=== PATIENT | male | born 1940 | race Caucasian/White ===

== ENCOUNTER → 2023-03-29 13:59 | Outpatient (REF) | payer OTHER, SELFPAY ==
[2023-03-29 14:34] LABS: % Basophils 0.6 % (0-2); % Eosinophils 3.9 % (0-6); % Immature Granulocytes 0.5 % (0-0.5); % Lymphocytes 22.2 % (20.5-51.1); % Monocytes 7.9 % (1.7-9.3); % Neutrophils 64.9 % (42.2-75.2); Absolute Eosinophils 0.3 10^3/uL (0-0.7); Absolute Lymphocytes 1.5 10^3/uL (1.2-3.4); Absolute Monocytes 0.5 10^3/uL (0.1-0.6); Absolute Neutrophils 4.3 10^3/uL (1.4-6.5); Hematocrit 39.4 % (39.0-52.0); Hemoglobin 13.6 g/dL (13.0-18.0); Mean Corp Hgb Conc. 34.5 g/dL (33.0-37.0); Mean Corpuscular Hgb 30.5 pg (27.0-31.0); Mean Corpuscular Volume 88.3 fL (80.0-94.0); Mean Platelet Volume 9.3 fL (7.4-10.4); Nucleated Red Blood Cells % 0 % (-); Platelet Count 236 10^3/uL (130-400); Red Blood Cell Count 4.46 10^6/uL (4.70-6.10); Red Cell Dist. Width 12.8 % (11.5-14.5); White Blood Cell Count 6.6 10^3/uL (4.8-10.8)
[2023-03-29 14:48] LABS: ALT (SGPT) 20 U/L (0-50); AST (SGOT) 21 U/L (17-59); Albumin 3.8 g/dl (3.5-5.0); Alkaline Phosphatase 92 U/L (38-126); Blood Urea Nitrogen 13 mg/dl (9-20); Calcium 9.7 mg/dl (8.4-10.2); Carbon Dioxide 27 mmol/L (22-30); Chloride 97 mmol/L (98-107); Glucose 103 mg/dl (70-99); HDL Cholesterol 61 mg/dl; LDL Cholesterol, Calculated 90 mg/dl; Potassium 4.5 mmol/L (3.5-5.1); Sodium 132 mmol/L (135-145); Total Bilirubin 0.7 mg/dl (0.2-1.3); Total Cholesterol 172 mg/dl (50-199); Total Protein 6.5 g/dl (6.3-8.2); Triglyceride 108 mg/dl (10-149); Very Low Density Lipoprotein 21 mg/dl (0-30); eGFR > 60.00
[2023-03-29 15:14] LABS: Urine Albumin Negative (Neg - Trace); Urine Bilirubin Negative (Negative); Urine Character Clear (Clear); Urine Color Yellow; Urine Glucose Negative (Negative); Urine Ketone Negative (Negative); Urine Leukocyte 1+ (Negative); Urine Nitrite Negative (Negative); Urine Occult Blood Negative (Negative); Urine Specific Gravity 1.015 (<1.030); Urine Urobilinogen Negative (Neg - 1+)
[2023-03-29 15:26] LABS: Urine Red Blood Cell 0-2 /HPF (0-2)
== END ==
LOC: RAD 13:59
PROVIDERS: ATTENDING PHYSICIAN Nurse Practitioner Family; FAMILY PHYSICIAN Family Medicine
DX: Z76.89 Persons encountering health services in other specified circumstances (principal); Z86.73 Personal history of transient ischemic attack (TIA), and cerebral infarction without residual deficits; K21.9 Gastro-esophageal reflux disease without esophagitis; Z01.89 Encounter for other specified special examinations; R05.3 Chronic cough; R09.89 Other specified symptoms and signs involving the circulatory and respiratory systems
CPT/HCPCS: 36415; 71046; 80053; 80061; 81003; 81015; 84443; 85025; 87086

== ENCOUNTER → 2023-05-15 14:19 | Outpatient (REF) | payer OTHER, SELFPAY | LOC: RAD 14:19 | PROVIDERS: ATTENDING PHYSICIAN Nurse Practitioner Family | DX: R05.3 Chronic cough (principal) | CPT/HCPCS: 71260; Q9967 ==

== ENCOUNTER → 2023-05-17 12:38 | Outpatient (REF) | payer OTHER, SELFPAY | LOC: HWRCS 12:38 | PROVIDERS: ATTENDING PHYSICIAN Internal Medicine Cardiovascular Disease; FAMILY PHYSICIAN Nurse Practitioner Family | DX: R05.3 Chronic cough (principal); I10 Essential (primary) hypertension; R06.02 Shortness of breath | CPT/HCPCS: 93306 ==

== ENCOUNTER 2023-05-29 19:00 | Inpatient (IN) | payer OTHER, SELFPAY ==
[2023-05-29] VITALS (7 sets, daily range): BP systolic 101–145; BP diastolic 57–75; BMI 26.4; BMI 25.9
[2023-05-29 15:44] LABS: % Basophils 0.5 % (0-2); % Eosinophils 1.1 % (0-6); % Immature Granulocytes 0.5 % (0-0.5); % Lymphocytes 8.7 % (20.5-51.1); % Monocytes 10.7 % (1.7-9.3); % Neutrophils 78.5 % (42.2-75.2); Absolute Basophils 0.1 10^3/uL (0-0.2); Absolute Eosinophils 0.1 10^3/uL (0-0.7); Absolute Immature Granulocytes 0.1 10^3/uL (0-0.05); Absolute Lymphocytes 0.8 10^3/uL (1.2-3.4); Absolute Neutrophils 7.4 10^3/uL (1.4-6.5); Hematocrit 33.4 % (39.0-52.0); Hemoglobin 11.9 g/dL (13.0-18.0); Mean Corp Hgb Conc. 35.6 g/dL (33.0-37.0); Mean Corpuscular Volume 84.1 fL (80.0-94.0); Mean Platelet Volume 8.5 fL (7.4-10.4); Nucleated Red Blood Cells % 0 % (-); Platelet Count 292 10^3/uL (130-400); Red Blood Cell Count 3.97 10^6/uL (4.70-6.10); Red Cell Dist. Width 12.4 % (11.5-14.5); White Blood Cell Count 9.4 10^3/uL (4.8-10.8)
[2023-05-29 15:52] LABS: INR 1.11; PT 14.3 Sec (11.4-14.6)
[2023-05-29 15:54] LABS: ALT (SGPT) 30 U/L (0-50); AST (SGOT) 32 U/L (17-59); Albumin 3.8 g/dl (3.5-5.0); Alkaline Phosphatase 114 U/L (38-126); Blood Urea Nitrogen 9 mg/dl (9-20); Calcium 9.2 mg/dl (8.4-10.2); Carbon Dioxide 25 mmol/L (22-30); Chloride 90 mmol/L (98-107); Glucose 106 mg/dl (70-99); Potassium 4.4 mmol/L (3.5-5.1); Sodium 121 mmol/L (135-145); Total Bilirubin 0.6 mg/dl (0.2-1.3); Total Protein 6.6 g/dl (6.3-8.2); eGFR > 60.00
[2023-05-29 16:06] LABS: NT-proBNP 714 pg/ml; Troponin I 0.021 ng/ml
--- NOTE | 2023-05-29 17:14 | ED.GENMED ---
History of Present Illness
General
Chief Complaint: Breathing Problem
Source: patient and family
Time Seen by Provider: 05/29/23 16:08
Travel History
Have you had any contact with someone who has COVID-19?: No
Do you have any symptoms of coronavirus? Fever > 100 degrees, chills, cough, shortness of breath, sore throat, loss of taste or smell, muscle aches, or headache?: Yes
Symptoms:: sob
History of Present Illness
History of Present Illness:
83-year-old male presents emergency department after being referred here by his passenger service representative. He notes a persistent cough for at least the last 2 months, has had an extensive workup and evaluations with his primary and now pulmonary. He localizes
his cough to the throat and neck area and has an appointment to see ENT in July. Was seen by pulmonary today and thought to have asthmatic bronchitis as a cause of the symptoms. However while in the office he developed an episode of coughing after
the nebulizer treatment that he was given which concerned the passenger service representative and he was referred to the ER specifically for a neck CAT scan. That finding is noted here. However, patient also incidentally noted to be hyponatremic which is new.
Patient denies hyponatremia like symptoms at this time such as dizziness, fatigue, etc. He is not on diuretics or other medications known to precipitate hyponatremia.
Past History
Past History
ED Past Medical History: GERD and Other (Reflux, hypertension)
ED Past Surgical History: Cholecystectomy, Orthopedic and Other
Social History
Tobacco: Non-smoker
Alcohol: None
Drug: None
Personal:
Living: with family
Phy Exam
Physical Exam
Physical Exam:
GENERAL: Alert , in no apparent distress, slightly hard of hearing
EYE: pupils equal and reactive
NECK: Supple, no significant adenopathy.
ENT: o/p clr, mmm, voice clear, no drool
CARDIAC: Regular rate and rhythm .
LUNGS: Equal breath sounds bilaterally, no acute respiratory distress, no stridor, no drool, slight Rales noted at right base, no wheezing, no retractions
ABDOMEN: Soft, without focal tenderness, no r/g, no cvat
NEUROLOGICAL: Alert and oriented, no focal neuro deficits
SKIN: Warm and dry, skin intact.
MUSCULOSKELETAL: No edema, well perfused.
PSYCH: Normal and appropriate interaction.
Scores
Heart Failure Risk
Heart Failure Risk Score: Not Applicable
Course
Orders/Labs/Results
Orders:
Orders
05/29/23 Dinner
Regular
At Your Request: Limited Participation
Fluid Restriction: 1200 mL/day (40 oz)
05/29/23 15:19
EKG [Electrocardiogram (*1)] Urgent
Reason for Study: Shortness of Breath
CT Neck W/o Iv Contrast Urgent
Comment:
Reason For Exam: persistent SOB
EKG- Treatment ONCE
CR Chest - 2 Views Urgent
Comment:
Reason For Exam: SOB
05/29/23 15:33
Complete Blood Count/With Diff Urgent
Comprehensive Metabolic Panel Urgent
NT-proBNP Urgent
Prothrombin Time Urgent
Troponin I Urgent
05/29/23 18:00
3% Sodium Chloride 250 ml [Sodium Chloride 3%] 250 ml IV ONCE
05/29/23 18:10
Admit/Transfer Patient As Directed
Co-Sign Provider:
Level of Care: Inpatient admission
Assign to:: Telemetry
Physician / Group: Kim Lake
Diagnosis: Hyponatremia
Reason for Telemetry: Chest Pain syndromes
Date to Stop Telemetry: 05/31/23
Time to Stop Telemetry: 11:00
Reason for Hospitalization: Hyponatremia
Expected length of stay greater than two midnights?: Yes
ELOS- Estimated Length of Stay in days: 3
I certify the patient meets the requirements for IP care: Yes
05/29/23 18:11
Code Status As Directed
Resuscitation Status: Full Code
05/29/23 18:28
Osmolality, Random Urine Urgent
Date Specimen was Collected: 05/29/23
Time Specimen was Collected: 18:16
Urine Sodium Stat
Date Specimen was Collected: 05/29/23
Time Specimen was Collected: 18:16
05/29/23 18:34
Albuterol [ProAIR HFA INHALER] 2 puff INH R Q6 PRN
Benzonatate [Tessalon Perles] 100 mg PO TIDPRN PRN
Budesonide/Formoterol 160/4.5 [Symbicort 160/4.5 Mcg Inhaler] 2 puff INH R BID
05/29/23 20:21
Acetaminophen [Tylenol] 650 mg PO Q4HPRN PRN
Bisacodyl [Dulcolax] 10 mg RECTAL [id number] PRN
Docusate W/Senna [Senokot-S] 1 tablet PO BIDPRN PRN
Enoxaparin Sodium [Lovenox] 40 mg SC QPM
Polyethylene Glycol Powder [Miralax] 17 grams PO DAILYPRN PRN
fluticasone propionate 1 spray NASAL BID
05/29/23 20:21
NEPHROLOGY CONSULT Routine
Consulting Provider: Alie Dubois
Was physician already notified: Yes
Sputum Culture [Respiratory Culture/Gram Stain] Routine
[place] Source: Sputum
Specimen Description:
Date Specimen was Collected: 05/30/23
Time Specimen was Collected: 09:09
Activity As Directed
Activity Level: Beach Chair
Nursing to Place Non Medication Order As Directed
Physician Order: please update overnight BRAND ENGINEER with 10PM Na results for further guidance on 3%. Goal Na tomorrow
AM is 124-125
Above order entered?: Yes
Vital Signs As Directed
Frequency: Per unit guidelines
Acapella [Rx Pep / Acapela] [RESP] Routine
DX Deep Vein Thrombosis Video Routine
05/29/23 21:41
BMP [Basic Metabolic Panel] Q4H
05/30/23 06:44
BMP [Basic Metabolic Panel] Q4H
Complete Blood Count/With Diff IN AM
TSH IN AM
05/30/23 08:00
Cetirizine HCl [Zyrtec] 10 mg PO DAILY
Guaifenesin [Mucinex] 600 mg PO DAILY
Pantoprazole [Protonix] 40 mg PO DAILY
Tamsulosin [Flomax] 0.4 mg PO DAILY
05/30/23 09:46
BMP [Basic Metabolic Panel] Q4H
05/30/23 13:44
BMP [Basic Metabolic Panel] Q4H
05/30/23 18:08
BMP [Basic Metabolic Panel] Q4H
05/30/23 21:33
BMP [Basic Metabolic Panel] Q4H
05/31/23 11:00
DC Protocol for Telemetry ONCE
Abnormal Lab Results
05/29/23
15:33
RBC 3.97 L 10^6/uL
(4.70-6.10)
Hgb 11.9 L g/dL
(13.0-18.0)
Hct 33.4 L %
(39.0-52.0)
Abs Immat Gran (auto) 0.1 H 10^3/uL
(0-0.05)
Absolute Neuts (auto) 7.4 H 10^3/uL
(1.4-6.5)
Absolute Lymphs (auto) 0.8 L 10^3/uL
(1.2-3.4)
Absolute Monos (auto) 1.0 H 10^3/uL
(0.1-0.6)
Neutrophils % 78.5 H %
(42.2-75.2)
Lymphocytes % 8.7 L %
(20.5-51.1)
Monocytes % 10.7 H %
(1.7-9.3)
Sodium 121 L mmol/L
(135-145)
Chloride 90 L mmol/L
(98-107)
Creatinine 0.6 L mg/dL
(0.7-1.3)
Glucose 106 H mg/dl
(70-99)
05/29/23 15:33
05/29/23 15:33
Vital Signs
Initial and Last Documented VS:
Initial Vital Signs
Temp Pulse Resp BP Pulse Ox
97.9 F 80 17 119/60 98
05/29/23 15:21 05/29/23 15:21 05/29/23 15:21 05/29/23 15:21 05/29/23 15:21
Last Documented Vital Signs
Temp Pulse Resp BP Pulse Ox
97.9 F 66 16 131/71 96
06/01/23 08:00 06/01/23 11:33 06/01/23 11:33 06/01/23 08:00 06/01/23 08:00
*Critical Care Note
Total Time (30-74mins, 75-104mins- exclusive of procedures): Not Applicable
Update Note
Update Note:
Patient presents to the Emergency Department with ___shortness of breath and wheezing
Number and Complexity of Problems Addressed at the Encounter
� Chronic conditions affecting care:
� Acute Exacerbation and/or Progression of Chronic Illness:
� Differential Diagnosis includes: Cough variant asthma, bronchitis, pneumonia, etc.
Amount and/or Complexity of Data to be Reviewed and Analyzed
� I performed an independent evaluation of and my interpretation is:
EKG: Read by me, normal sinus rhythm, normal rate, no acute ischemia, right bundle branch block
CT: CT scan of neck shows right lingual tonsillar enlargement mild partially effacing the right vallecula, could be tonsillar hypertrophy versus squamous cell carcinoma, moderate mucosal thickening in maxillary sinus.
Xrays: Chest x-ray unremarkable
Laboratory Studies: Sodium 121 chloride 90 which is a new finding
Other:
� Review of other/old records reveals: Recent chest CT unremarkable, recent chest x-ray unremarkable. Office note from today reviewed by me, patient was advised to start doxycycline, continue Symbicort, nebulizer therapy,
continue Flonase, etc. Patient has ENT consultation recommended.
� Clinical information was obtained by an independent historian:
� Prescriptions/Medications Considered but not given:
� Further testing considered but not performed:
Risk of Complications and/or Morbidity or Mortality of Patient Management
� Social determinants of health affecting care:
� Discussion with other providers (PCP, Hospitalists, Consultants, etc):
� Escalation of care including admission/observation vs risk of discharge considered: Unclear if CT neck findings a specific cause for his shortness of breath/cough, will need an ENT evaluation. Patient is clinically stable
here. However, he is noted to have new onset and worrisome hyponatremia. Case discussed with nephrology, recommendations pasted here, case discussed with hospitalist for admission. Will start 3% at this time.
Okay start him at 30cc per hour. BMP q4-6 hours. Goal for 124-125 by tomorrow AM. Please get urine osm and urine sodium
ED Attending Note
-
Portions of this chart may have been created with voice recognition software.� Occasional wrong word or��sound alike� substitutions may have occurred due to the inherent limitations of voice recognition software.
Discharge Plan
Departure
Patient Disposition: Admit
Date of Disposition: 05/29/23
Time of Disposition: 17:29
Admit to: Telemetry
Presentation/result/management discussed w/ accepting MD/DO: Hospitalist
Condition: Fair
Discharge Problem:
Acute hyponatremia
Interventions
Interventions:
*General Assessment Last Done: 05/29/23 15:23
*Neglect/Abuse Screening Last Done: 05/29/23 16:13
ED- Fall Risk Assessment Last Done: 05/29/23 16:13
*Nursing Disposition Last Done: 05/29/23 21:15
ED- Cardiac Assessment Last Done: 05/29/23 16:13
ED- Pulmonary Assessment Last Done: 05/29/23 16:13
Discharge Date and Time
Discharge Date/Time: 05/29/23 21:16
--- NOTE | 2023-05-29 17:41 | HPS.HSE ---
Family Physician
-
Family Physician: Monet Hooker
Chief Complaint
-
sent from pulmonary clinic
History of Present Illness
Mr. Gerardo Carlos is a 83 yo man with hx GERD, HTN with on-going outpatient work-up of cough sent to the ER by Field Sales Engineer for neck CT given report of stridor. Patient was given nebulizers in clinic followed by excessive coughing attack.
Given this, Dr. Jordan sent patient to the ER for expedited work-up.
Patient had Covid several months ago and following has had persistent and progressive cough. He reports coughing up significant thin mucus stating if he takes Mucinex it keeps him up all night. No fevers/chills. No chest pain. He sometimes feels
he has mucus stuck in chest.
He reports decreased appetite given persistent cough. He has remained hydrated. No nausea/vomiting/diarrhea. He has had normal BM. No LE swelling. No shortness of breath aside from paroxysms of coughing.
Patient was prescribed inhalers at Dr. Jordan's office today and has not yet taken.
Medical History
Past Medical History
Past Medical History: Reports Other ( GERD, HTN)
Past Surgical History: Reports Cholecystectomy and Orthopedic
Social History
Tobacco: Non-smoker
Alcohol: None
Family History
Family History: Not pertinent
Allergies / Home Medications
Allergies reflects when Allergies were last updated in [employer].
Home Medications with original date entered in [employer]
Allergy/Medication List:
Allergies
Allergy/AdvReac Type Severity Reaction Status Date / Time
No Known Allergies Allergy Unverified 05/29/23 15:21
Home Medications
albuterol sulfate 90 mcg/actuation aerosol inhaler 2 puff inhalation Q6H PRN shortness of breath or wheezing #6.7 grams 02/08/23
*med rec not yet confirmed
Review of Systems
-
History Source: Patient
A 12 point ROS was completed and negative except as noted: Yes
Physical Exam
Vital Signs
Vital Signs
Temp Pulse Resp BP Pulse Ox
97.9 F 91 22 101/57 95
05/29/23 15:21 05/29/23 16:45 05/29/23 16:45 05/29/23 16:21 05/29/23 16:30
Physical Exam
General: No Apparent Distress
HEENT: PERRLA
Respiratory: Clear and Other (end expiratory low pitch stridor )
Cardiac: S1/S2 and Regular Rhythm
GI: Soft and Non Tender
Musculoskeletal: No Edema
Skin: Warm and Dry; No Rash
Neuro: AO x 3
Psych: Calm
Laboratory Results
-
05/29/23 15:33
05/29/23 15:33
Laboratory Results
PT 14.3 Sec (11.4-14.6) 05/29/23 15:33
INR 1.11 05/29/23 15:33
Total Bilirubin 0.6 mg/dl (0.2-1.3) 05/29/23 15:33
AST 32 U/L (17-59) 05/29/23 15:33
ALT 30 U/L (0-50) 05/29/23 15:33
Alkaline Phosphatase 114 U/L (38-126) 05/29/23 15:33
Troponin I 0.021 ng/ml 05/29/23 15:33
Data Reviewed
-
Diagnostic Radiology: Report Reviewed by me
Lab Data: Labs Reviewed by me
Impression/Plan
-
Mr. Gerardo Carlos is a 83 yo man with hx GERD, HTN with on-going outpatient work-up of cough sent to the ER by Field Sales Engineer for neck CT.
Triage VS: T 97.9, P 80, RR 17, BP 119/60, SpO2 98%
LABS: WBC 9.4, Hg 11.9, PLT 292, Na 121, K+ 4.4, BUN 9, Cr 0.6, liver enzymes WNL, Trop 0.021, BNP 714
CXR
IMPRESSION:
1. Mildly decreased bilateral lung volumes with mild subpleural scarring and subsegmental atelectasis in both lower lungs which appears unchanged.
2. Mild left to right mediastinal shift which appears unchanged.
NECK CT
IMPRESSION:
1. Mild enlargement of the right lingual tonsil partially effacing the right vallecula. Diagnostic possibilities are (1) tonsillar hypertrophy or (2) squamous cell carcinoma.
2. Moderate mucosal thickening in the maxillary sinuses and ethmoid air cells.
3. Severe multilevel discogenic degenerative disease in the cervical spine with multilevel disc-osteophyte complexes causing mild spinal cord compression, mild central canal stenosis, and severe neural foraminal narrowing.
Hyponatremia
-etiology of hyponatremia likely 'tea and toast' diet as patient has not been eating well 2/2 resp sx versus SIADH from lung pathology
-3% started in the ER. Case discussed with renal who recommends BMP q 4 hours and goal Na tomorrow AM is 124-125
-admit to tele
-F/U urine sodium and osmol
-fluid restriction 1200cc/day
-formal renal consult tomorrow
Chronic Cough
Asthmatic Bronchitis
post covid syndrome
-on-going since covid with progressive symptoms. He had a recent chest CT without acute disease of the chest
-Neck CT abnormal showing mild enlargement right lingual tonsil -patient has follow up scheduled with ENT
-will order inhalers ordered by Dr. Jordan at clinic today that patient has not yet taken
-continue albuterol PRN
-Mucinex daily (patient doesn't like taking at night), acapella
-Tessalon pearles PRN
-sputum culture
BPH
-EXPLOSION WELDER Flomax
DVT PPx lovenox subQ
FULL CODE
[2023-05-29] MEDS: SODIUM CHLORIDE 3% 250 IV (18:34)
[2023-05-29 19:07] LABS: Osmolality Urine 388 mOsm/kg (300-900)
[2023-05-29] MEDS: SYMBICORT 160/4.5 MCG INHALER 2 PUFF INH (19:20)
[2023-05-29 19:35] LABS: Urine Sodium 56 mmol/L (30-90)
[2023-05-29] MEDS: SYMBICORT 160/4.5 MCG INHALER INH (20:09)
[2023-05-29] MEDS: LOVENOX 40 MG SC (20:35)
--- NOTE | 2023-05-29 22:00 | PTCARENOTE ---
Pt arrived to the unit around 2200. Pt ambulated from the stretcher to the bed. VSS and patient denies any pain. Pt oriented to the room and call montejo within reach. Assisted patient with using room telephone to contact his . Patient provided
with food menu and following regular diet, per order.
[2023-05-29 22:16] LABS: Blood Urea Nitrogen 10 mg/dl (9-20); Carbon Dioxide 25 mmol/L (22-30); Chloride 91 mmol/L (98-107); Estimated Creatinine Clearance 93 ml/min; Glucose 100 mg/dl (70-99); Potassium 4.4 mmol/L (3.5-5.1); Sodium 120 mmol/L (135-145); eGFR > 60.00
[2023-05-30] MEDS: ProAIR HFA INHALER 2 PUFF INH (00:56)
[2023-05-30 03:25] VITALS: BP 140/71
[2023-05-30] MEDS: ROBITUSSIN DM 5 ML PO ×2 (04:33→15:03)
[2023-05-30] MEDS: SYMBICORT 160/4.5 MCG INHALER 2 PUFF INH ×2 (07:20→19:44)
[2023-05-30 07:30] VITALS: BP 134/72
[2023-05-30 07:36] LABS: % Basophils 0.6 % (0-2); % Immature Granulocytes 0.5 % (0-0.5); % Lymphocytes 14.1 % (20.5-51.1); % Monocytes 11.7 % (1.7-9.3); % Neutrophils 71.1 % (42.2-75.2); Absolute Basophils 0.1 10^3/uL (0-0.2); Absolute Eosinophils 0.2 10^3/uL (0-0.7); Absolute Lymphocytes 1.2 10^3/uL (1.2-3.4); Absolute Neutrophils 5.8 10^3/uL (1.4-6.5); Hematocrit 35.8 % (39.0-52.0); Hemoglobin 12.5 g/dL (13.0-18.0); Mean Corp Hgb Conc. 34.9 g/dL (33.0-37.0); Mean Corpuscular Hgb 30.1 pg (27.0-31.0); Mean Corpuscular Volume 86.3 fL (80.0-94.0); Nucleated Red Blood Cells % 0 % (-); Platelet Count 312 10^3/uL (130-400); Red Blood Cell Count 4.15 10^6/uL (4.70-6.10); Red Cell Dist. Width 12.5 % (11.5-14.5); White Blood Cell Count 8.2 10^3/uL (4.8-10.8)
[2023-05-30 07:51] LABS: Blood Urea Nitrogen 9 mg/dl (9-20); Calcium 9.3 mg/dl (8.4-10.2); Carbon Dioxide 26 mmol/L (22-30); Chloride 92 mmol/L (98-107); Estimated Creatinine Clearance 93 ml/min; Glucose 100 mg/dl (70-99); Potassium 4.6 mmol/L (3.5-5.1); Sodium 124 mmol/L (135-145); eGFR > 60.00
[2023-05-30 08:12] LABS: TSH 3.79 uIU/ml (0.47-4.68)
[2023-05-30] MEDS: FLOMAX 0.400000000000000022 MG PO (08:59)
[2023-05-30] MEDS: MUCINEX 600 MG PO (08:59)
[2023-05-30] MEDS: PROTONIX 40 MG PO (08:59)
[2023-05-30] MEDS: ZYRTEC 10 MG PO (08:59)
[2023-05-30 10:47] LABS: Blood Urea Nitrogen 9 mg/dl (9-20); Calcium 9.2 mg/dl (8.4-10.2); Carbon Dioxide 27 mmol/L (22-30); Chloride 92 mmol/L (98-107); Estimated Creatinine Clearance 93 ml/min; Glucose 90 mg/dl (70-99); Potassium 4.2 mmol/L (3.5-5.1); Sodium 122 mmol/L (135-145); eGFR > 60.00
--- NOTE | 2023-05-30 11:20 | W.PN.HOSP.TC ---
Today's Communication/Plan
-
see plan
Assessment / Plan
Assessment / Plan
Mr. Gerardo Carlos is a 83 yo man with hx GERD, HTN with on-going outpatient work-up of cough sent to the ER by Aquaculture Farmer for neck CT.
CXR
IMPRESSION:
1. Mildly decreased bilateral lung volumes with mild subpleural scarring and subsegmental atelectasis in both lower lungs which appears unchanged.
2. Mild left to right mediastinal shift which appears unchanged.
NECK CT
IMPRESSION:
1. Mild enlargement of the right lingual tonsil partially effacing the right vallecula. Diagnostic possibilities are (1) tonsillar hypertrophy or (2) squamous cell carcinoma.
2. Moderate mucosal thickening in the maxillary sinuses and ethmoid air cells.
3. Severe multilevel discogenic degenerative disease in the cervical spine with multilevel disc-osteophyte complexes causing mild spinal cord compression, mild central canal stenosis, and severe neural foraminal narrowing.
Hyponatremia
-etiology of hyponatremia likely 'tea and toast' diet as patient has not been eating well 2/2 resp sx versus SIADH from lung pathology
-3% started in the ER. Na 124 this AM; repeat 122. 3% resumed at 40cc/hr - discussed with renal who will see soon
-monitor on tele
-fluid restriction 1200cc/day
-F/U further renal recs
Chronic Cough
Asthmatic Bronchitis
post covid syndrome
-on-going since covid with progressive symptoms. He had a recent chest CT without acute disease of the chest
-Neck CT abnormal showing mild enlargement right lingual tonsil -patient has follow up scheduled with ENT
-will order inhalers ordered by Dr. Jordan at clinic today that patient has not yet taken
-continue albuterol PRN
-Mucinex daily (patient doesn't like taking at night), acapella
-Tessalon pearles PRN
-sputum culture
-start robitussin with codeine qhs
-stop Dextromorphan as can cause excessive drowsiness
BPH
-STRATEGIC COMMUNICATIONS SPECIALIST Flomax
DVT PPx lovenox subQ
FULL CODE
Anticipated Discharge: 24 - 48 hours
Subjective/Interval History
-
Date of Service: May 30, 2023
states cough mildly improved this morning
rough night with frequent coughing
Objective Data
-
Labs:
Laboratory Results
05/30/23 05/30/23 05/30/23
02:00 06:44 09:46
WBC 8.2
Hgb 12.5 L
Hct 35.8 L
Plt Count 312
Sodium Cancelled 124 L 122 L
Potassium Cancelled 4.6 4.2
Chloride Cancelled 92 L 92 L
Carbon Dioxide Cancelled 26 27
BUN Cancelled 9 9
Creatinine Cancelled 0.6 L 0.6 L
Glucose Cancelled 100 H 90
Calcium Cancelled 9.3 9.2
05/30/23 05/30/23 05/30/23
14:00 18:00 22:00
WBC
Hgb
Hct
Plt Count
Sodium Pending Pending Pending
Potassium Pending Pending Pending
Chloride Pending Pending Pending
Carbon Dioxide Pending Pending Pending
BUN Pending Pending Pending
Creatinine Pending Pending Pending
Glucose Pending Pending Pending
Calcium Pending Pending Pending
Vital Signs:
Vital Signs
Temp Pulse Resp BP Pulse Ox
97.7 F 74 22 134/72 96
05/30/23 07:30 05/30/23 07:30 05/30/23 07:30 05/30/23 07:30 05/30/23 07:30
Review of Systems
-
History Source: Patient
All other systems: Reviewed and negative
Physical Exam
-
General: No Apparent Distress and Conversant
HEENT: PERRLA
Respiratory: Other (coughing with expiration)
Cardiac: Regular Rhythm and S1/S2
GI: Soft and Nontender
Musculoskeletal: No Edema
Skin: Warm and Dry; Negative Rash
Neuro: AO x 3
Psych: Calm
Data Reviewed
-
Diagnostic Radiology: Report Reviewed by me
Labs: Labs Reviewed by me
[2023-05-30 11:59] VITALS: BP 140/78
[2023-05-30] MEDS: SODIUM CHLORIDE 3% 250 IV (12:27)
[2023-05-30 14:20] LABS: Blood Urea Nitrogen 9 mg/dl (9-20); Calcium 9.5 mg/dl (8.4-10.2); Carbon Dioxide 26 mmol/L (22-30); Chloride 88 mmol/L (98-107); Estimated Creatinine Clearance 93 ml/min; Glucose 98 mg/dl (70-99); Sodium 124 mmol/L (135-145); eGFR > 60.00
[2023-05-30] MEDS: VIBRAMYCIN 100 MG PO ×2 (14:50→21:00)
[2023-05-30] MEDS: DECADRON 4 MG IV ×2 (14:50→21:05)
--- NOTE | 2023-05-30 14:58 | W.CON.NEPH ---
Consultation
-
Date/Time Consultation Requested: 05/29/2023 20:21
Date/Time Consultation Performed: 05/30/2023 2:59PM
Requesting Provider: Kim Lake
Performing Provider: Alie Dubois
Reason for Consultation: hyponatremia
Medical History
-
Chief Complaint: hyponatremia
History of Present Illness:
Mr. Carlos is an 83YOM with PMH of GERD, HTN, chronic cough who was sent to the ER by his partition notcher for a neck CT since there was concern for stridor. The patien twas given nebulizers in pulm clinic and then sent to the ED for expedited workup.
Patient states he had COVID several months ago and since then has had a persistent and progressive cough. Denies fevers, chills, chest pain. States that he has lost about 10 lbs in the past month. Has not been eatin gwell for the past few days and
drinks quite a bit of water, much more than 48oz. Daughter at bedside states that his last Na in Mar 2023 was 134 but he has always been persistently told that his Na is low.
Past Medical History
Past Medical History: GERD and HTN
Past Surgical History: Cholecystectomy and Orthopedic
Social History
Tobacco: Non-Smoker
Alcohol: Occasional
Drug: None
Personal:
Living: With Family
Family History
Family History: Not Pertinent
Allergies / Home Medications
Allergy/AdvReac Type Severity Reaction Status Date / Time
No Known Allergies Allergy Unverified 05/29/23 15:21
�Medication �Instructions �Recorded �Confirmed �Type
albuterol sulfate 90 mcg/actuation 2 puff inhalation R Q6 PRN 05/29/23 05/29/23 History
aerosol inhaler shortness of breath or wheezing
budesonide-formoterol HFA 160 2 puff inhalation R BID 05/29/23 05/29/23 History
mcg-4.5 mcg/actuation aerosol
inhaler
cetirizine 10 mg tablet (Zyrtec) 10 mg PO DAILY 05/29/23 05/29/23 History
dextromethorphan HBr 15 mg capsule 15 mg PO DAILY PRN cough 05/29/23 05/29/23 History
fluticasone propionate 50 1 spray intranasal BID 05/29/23 05/29/23 History
mcg/actuation nasal
spray,suspension
omeprazole magnesium 20 mg 20 mg PO DAILY 05/29/23 05/29/23 History
tablet,delayed release (Prilosec
OTC)
hovbbsjsmdziq-PJ-igwvbxffmajgp-guaif 20 ml PO DAILY PRN cold 05/29/23 05/29/23 History
10 mg-20 mg-650 mg/20 mL oral liq symptoms/cough
(Robitussin Severe Jdxja-Jzsy-Dhd)
promethazine-DM 6.25 mg-15 mg/5 mL 10 ml PO Q4H PRN cough 05/29/23 05/29/23 History
oral syrup
tamsulosin 0.4 mg capsule 0.4 mg PO DAILY 05/29/23 05/29/23 History
Review of Systems
-
History Source: Patient and Family
All other systems: Negative unless noted
Constitutional: Weight Loss and Fatigue
Respiratory: Cough
Physical Exam
Vital Signs
Vital Signs
Temp Pulse Resp BP Pulse Ox
98.0 F 75 22 140/78 94
05/30/23 11:59 05/30/23 11:59 05/30/23 11:59 05/30/23 11:59 05/30/23 11:59
Lab Results
WBC 8.2 10^3/uL (4.8-10.8) 05/30/23 06:44
RBC 4.15 10^6/uL (4.70-6.10) L 05/30/23 06:44
Hgb 12.5 g/dL (13.0-18.0) L 05/30/23 06:44
Hct 35.8 % (39.0-52.0) L 05/30/23 06:44
Plt Count 312 10^3/uL (130-400) 05/30/23 06:44
eGFR > 60.00 05/30/23 13:44
Bxo-O-Yvzaaflawba Pept 714 pg/ml 05/29/23 15:33
Albumin 3.8 g/dl (3.5-5.0) 05/29/23 15:33
Physical Exam
General: AOx3, No Distress and Nontoxic
HEENT: PERRL, EOMI, Anicteric, Conjunctivae Clear, Ear/Nose Intact, Hearing Normal and Dentition Intact
Respiratory: Clear
Cardiac: S1/S2, Regular Rate/Rhythm and Murmur (systolic murmur)
Breast: N/A
Abdomen: Soft and Nontender
Rectal: Deferred by Provider
Musculoskeletal: No Clubbing, No Cyanosis and No Edema
Skin: No Rash, Warm and Dry
Neuro: Nonfocal/Grossly Intact
Hematologic/Lymphatic: No Cervical Lymphadenopathy
Psych: Mood/afflect pleasant
Data Reviewed
-
Radiology: Image Personally Visualized and interpreted (CXR appears wnl)
CT Scan: Report Reviewed by me
Labs: Labs Reviewed by me
Old Records: Reviewed
Assessment/Plan
-
Assessment:
Hyponatremia
Chronic cough
BPH
Plan:
Hyponatremia
- urine studies consistent with SIADH
- agree with 3% HTS at 40cc/hr. Na on presentation at 121 --> brought up to 124 this AM. goal is to be above 130 by tomorrow AM
- patient does have chronic hyponatremia
- encouraged patient to FR and increase osmolar intake
- trend BMPs q6h
[2023-05-30 15:00] VITALS: BP 149/74
[2023-05-30] MEDS: DUONEB 3 ML INH ×2 (15:49→19:44)
[2023-05-30] MEDS: LOVENOX 40 MG SC (17:00)
[2023-05-30 18:38] LABS: Blood Urea Nitrogen 10 mg/dl (9-20); Calcium 9.2 mg/dl (8.4-10.2); Carbon Dioxide 21 mmol/L (22-30); Chloride 91 mmol/L (98-107); Estimated Creatinine Clearance 93 ml/min; Glucose 124 mg/dl (70-99); Potassium 4.3 mmol/L (3.5-5.1); Sodium 124 mmol/L (135-145); eGFR > 60.00
[2023-05-30 19:19] VITALS: BP 124/70
[2023-05-30] MEDS: SODIUM CHLORIDE 3% 500 IV (21:02)
[2023-05-30] MEDS: ROBITUSSIN AC 5 ML PO (21:05)
[2023-05-30 22:00] LABS: Blood Urea Nitrogen 11 mg/dl (9-20); Calcium 9.4 mg/dl (8.4-10.2); Carbon Dioxide 20 mmol/L (22-30); Chloride 93 mmol/L (98-107); Estimated Creatinine Clearance 80 ml/min; Glucose 150 mg/dl (70-99); Potassium 4.3 mmol/L (3.5-5.1); Sodium 124 mmol/L (135-145); eGFR > 60.00
[2023-05-30 23:24] VITALS: BP 162/92
[2023-05-31 02:32] LABS: Blood Urea Nitrogen 10 mg/dl (9-20); Calcium 9.2 mg/dl (8.4-10.2); Carbon Dioxide 24 mmol/L (22-30); Chloride 99 mmol/L (98-107); Estimated Creatinine Clearance 93 ml/min; Glucose 144 mg/dl (70-99); Potassium 4.6 mmol/L (3.5-5.1); Sodium 127 mmol/L (135-145); eGFR > 60.00
[2023-05-31] MEDS: ROBITUSSIN DM 5 ML PO ×2 (02:42→18:03)
[2023-05-31 03:24] VITALS: BP 161/84
[2023-05-31] MEDS: DECADRON 4 MG IV ×3 (05:30→21:27)
[2023-05-31 06:59] LABS: Hematocrit 31.6 % (39.0-52.0); Hemoglobin 11.3 g/dL (13.0-18.0); Mean Corp Hgb Conc. 35.8 g/dL (33.0-37.0); Mean Corpuscular Volume 83.8 fL (80.0-94.0); Mean Platelet Volume 8.6 fL (7.4-10.4); Platelet Count 279 10^3/uL (130-400); Red Blood Cell Count 3.77 10^6/uL (4.70-6.10); Red Cell Dist. Width 12.4 % (11.5-14.5); White Blood Cell Count 5.6 10^3/uL (4.8-10.8)
[2023-05-31 07:20] LABS: Blood Urea Nitrogen 10 mg/dl (9-20); Calcium 9.1 mg/dl (8.4-10.2); Carbon Dioxide 24 mmol/L (22-30); Chloride 102 mmol/L (98-107); Estimated Creatinine Clearance 93 ml/min; Glucose 134 mg/dl (70-99); Magnesium 1.8 mg/dl (1.6-2.3); Potassium 4.6 mmol/L (3.5-5.1); Sodium 129 mmol/L (135-145); eGFR > 60.00
[2023-05-31 07:30] VITALS: BP 107/67
[2023-05-31] MEDS: DUONEB 3 ML INH ×3 (07:51→14:40)
[2023-05-31] MEDS: SYMBICORT 160/4.5 MCG INHALER 2 PUFF INH ×2 (07:52→20:43)
[2023-05-31] MEDS: PROTONIX 40 MG PO (08:35)
[2023-05-31] MEDS: MUCINEX 600 MG PO (08:35)
[2023-05-31] MEDS: VIBRAMYCIN 100 MG PO (08:35)
[2023-05-31] MEDS: FLOMAX 0.400000000000000022 MG PO (08:35)
[2023-05-31] MEDS: ZYRTEC 10 MG PO (08:35)
--- NOTE | 2023-05-31 08:50 | CON.PUL ---
Consultation
Consultation Request
Date/Time Consultation Requested: 05/30/2023 - 134
Date/Time Consultation Performed: 05/31/2023 - 829
Requesting Provider: Dr. Lake
Performing Provider: Dr. Jansen
Reason for Consultation: Cough/asthmatic bronchitis
Medical History
-
Chief Complaint: Cough
History of Present Illness:
83-year-old male with a past medical history of hypertension, hyperlipidemia, history of COVID-19, GERD, postnasal drip, history of SVT, history of vocal cord dysfunction and remote history of bronchiectasis who presents with shortness of breath and
wheezing. Patient was at [facility] office prior to arrival as he had seen Dr. Jordan on 05/29/2023. Patient saw us there for a persistent cough, started on prednisone with Symbicort 160mcg, nebulized albuterol and doxycycline twice daily for [address] of the neck was also ordered as he localizes cough to his throat and neck and patient reported a history of vocal cord dysfunction many years ago. He had an appointment to see ENT as well but not until July. He was told to follow-up in 4 weeks
for PFTs and that if he developed respiratory distress or worsening shortness of breath to go to the ER. Because he did develop SOB and wheezing he went to the ER. In triage she was afebrile, pulse rate was 80, BP 119/60, saturating 98% on room
air and breathing at 17 breaths/min. Labs showed an absolute eosinophil count of 100, hyponatremia to 121, low serum chloride of 90, proBNP elevated at 714, and CXR showed reduced lung volumes with subpleural scarring and subsegmental atelectasis
in the lower lobes with no evidence of pneumonia. Neck CT also obtained showing moderate mucosal thickening of the maxillary sinuses and ethmoid air cells, with mild enlargement of the right lingual tonsil. He was started on 3% NS and admitted to
the hospitalist service. Of note, he did have a CT of the chest performed on 05/15/2023 which showed no acute disease of the chest and a noncalcified 4 mm pleural-based nodule in the right major fissure. He also had an echo performed on 05/17/2023
showing preserved LVEF of 55 to 60%, with normal RV, normal diastolic function, and normal PASP of 17 mmHg. He was started on steroids, continued on Symbicort, given prn antitussants, DuoNebs as well as doxycycline. Pulmonary now consulted for
additional management/recommendations.
When I saw the pt, he was in bed in NAD. He has still been coughing up until this AM. Had yellow phlegm production. He now feels much better. Denies chest pain, CONTRERAS, abd pain, N/V/f/c.
PMHx: History of SVT, history of TIA, high cholesterol, hypertension, history of RAMU, MVP, history of COVID-19 (January 2023), GERD, postnasal drip, 4 mm pulmonary nodule
PSHx: Shoulder surgery, cholecystectomy, bilateral cataract surgery, knee surgery, double hernia repair
Past Medical History
Past Medical History: Other (Above as per HPI)
Past Surgical History: Other (Above as per HPI)
Social History
Tobacco: Non-smoker
Alcohol: None
Drug: None
Family History
Family History: CAD (Father) and Other (Mother: ALS)
Allergies / Home Medications
Allergies
Allergy/AdvReac Type Severity Reaction Status Date / Time
No Known Allergies Allergy Unverified 05/29/23 15:21
Home Medications
�Medication �Instructions �Recorded �Confirmed �Last Taken �Type
albuterol sulfate 90 mcg/actuation 2 puff inhalation R Q6 PRN 05/29/23 05/29/23 Unknown History
aerosol inhaler shortness of breath or wheezing
budesonide-formoterol HFA 160 2 puff inhalation R BID 05/29/23 05/29/23 Unknown History
mcg-4.5 mcg/actuation aerosol
inhaler
cetirizine 10 mg tablet (Zyrtec) 10 mg PO DAILY 05/29/23 05/29/23 Unknown History
dextromethorphan HBr 15 mg capsule 15 mg PO DAILY PRN cough 05/29/23 05/29/23 Unknown History
fluticasone propionate 50 1 spray intranasal BID 05/29/23 05/29/23 Unknown History
mcg/actuation nasal
spray,suspension
omeprazole magnesium 20 mg 20 mg PO DAILY 05/29/23 05/29/23 Unknown History
tablet,delayed release (Prilosec
OTC)
zsaevmnffkaic-DS-ykbcpzjstonqf-guaif 20 ml PO DAILY PRN cold 05/29/23 05/29/23 Unknown History
10 mg-20 mg-650 mg/20 mL oral liq symptoms/cough
(Robitussin Severe Pecth-Omzo-Ehf)
promethazine-DM 6.25 mg-15 mg/5 mL 10 ml PO Q4H PRN cough 05/29/23 05/29/23 Unknown History
oral syrup
tamsulosin 0.4 mg capsule 0.4 mg PO DAILY 05/29/23 05/29/23 Unknown History
Review of Systems
-
History Source: Patient
All other systems: Negative unless noted
Vitals / Labs / Diagnostic Testing
Vital Signs
Temp Pulse Resp BP Pulse Ox
97.7 F 81 18 107/67 97
05/31/23 07:30 05/31/23 07:56 05/31/23 07:56 05/31/23 07:30 05/31/23 07:56
Lab Data
05/31/23 06:47
Microbiology
05/30/23 09:19 Sputum Gram Stain - Preliminary
Diagnostic Testing:
Physical Exam
-
HEENT: Normocephalic and Anicteric
Cardiovascular: S1/S2 and Peripheral Edema (negative)
Respiratory: Wheeze (negative), Rales (right base), Rhonchi (negative) and Non-Labored Respirations
GI: Soft, Non Distended, Non Tender and Normal Bowel Sounds
Neurology: AO x 3 and Tremors (negative)
Skin: Warm and Dry
General: Comfortable and Chills (negative)
Assessment
-
Assessment: 83-year-old male with a past medical history of hypertension, hyperlipidemia, history of COVID-19, GERD, postnasal drip, history of SVT, history of vocal cord dysfunction and remote history of bronchiectasis who presents with shortness
of breath and wheezing. Patient was at [facility] office prior to arrival as he had seen Dr. Jordan on 05/29/2023. Patient saw us there for a persistent cough, started on prednisone with Symbicort 160mcg, nebulized albuterol and doxycycline twice daily
for [address] of the neck was also ordered as he localizes cough to his throat and neck and patient reported a history of vocal cord dysfunction many years ago. He had an appointment to see ENT as well but not until July. He was told to
follow-up in 4 weeks for PFTs and that if he developed respiratory distress or worsening shortness of breath to go to the ER. Because he did develop SOB and wheezing he went to the ER. In triage she was afebrile, pulse rate was 80, BP 119/60,
saturating 98% on room air and breathing at 17 breaths/min. Labs showed an absolute eosinophil count of 100, hyponatremia to 121, low serum chloride of 90, proBNP elevated at 714, and CXR showed reduced lung volumes with subpleural scarring and
subsegmental atelectasis in the lower lobes with no evidence of pneumonia. Neck CT also obtained showing moderate mucosal thickening of the maxillary sinuses and ethmoid air cells, with mild enlargement of the right lingual tonsil. He was started
on 3% NS and admitted to the hospitalist service. Of note, he did have a CT of the chest performed on 05/15/2023 which showed no acute disease of the chest and a noncalcified 4 mm pleural-based nodule in the right major fissure. He also had an echo
performed on 05/17/2023 showing preserved LVEF of 55 to 60%, with normal RV, normal diastolic function, and normal PASP of 17 mmHg. He was started on steroids, continued on Symbicort, given prn antitussants, DuoNebs as well as doxycycline. Pulmonary
now consulted for additional management/recommendations.
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
Impression:
#Acute cough likely due to asthmatic bronchitis
#Positive respiratory culture with haemophilus influenza suggestive of CAP
#Right lingual tonsil enlargement: DDX includes tonsillar hypertrophy vs squamous cell carcinoma
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
Plan:
- Continue systemic steroids and wean as tolerated � currently on Decadron 4 mg IV q8hr --> can wean down to 4mg IV q12hr tonight, and once ready to go home would DC home on prednisone 50mg and reduce by 10mg every 4th day until off.
- Doxy changed to rocephin --> would Tx for 7 days (can DC home on cefdnir)
- Continue antitussants
- Continue DuoNebs QID
- Continue to trend serum Na and fluid restrict as per nephrology
- Recommend ENT consultation/follow-up due to his right lingual tonsil enlargement; consider biopsy
- Maintain SpO2 >90-94% with supplemental O2 as needed
- Incentive spirometer
- Replete electrolytes with K>4, Mg>2
- Maintain euglycemia with goal BG >100 and <180
- prn nebulized bronchodilators
- DVT ppx
Pulmonary service will continue to follow along.
Patient seen and evaluated on 05/31/2023
Total time spent today was 55 minutes for this encounter. Time includes reviewing laboratory test/imaging results, reviewing pertinent medical records, obtaining and reviewing medical history, performing an appropriate exam, ordering medications,
tests and procedures. Time also includes documentation of this encounter, coordinating patient care and communicating with other healthcare professionals. Total time does not include separately billed tests performed on this date of service.
Data:
CT Neck 05-29-2023:
1. Mild enlargement of the right lingual tonsil partially effacing the right vallecula. Diagnostic possibilities are (1) tonsillar hypertrophy or (2) squamous cell carcinoma.
2. Moderate mucosal thickening in the maxillary sinuses and ethmoid air cells.
3. Severe multilevel discogenic degenerative disease in the cervical spine with multilevel disc-osteophyte complexes causing mild spinal cord compression, mild central canal stenosis, and severe neural foraminal narrowing.
CXR 05-29-2023: compared to former CXR from 03/29/2023
1. Mildly decreased bilateral lung volumes with mild subpleural scarring and subsegmental atelectasis in both lower lungs which appears unchanged.
2. Mild left to right mediastinal shift which appears unchanged.
[2023-05-31 11:00] VITALS: BP 110/66
--- NOTE | 2023-05-31 11:18 | W.PN.NEPH.PH ---
Today's Communication / Plan
-
Hold further hypertonic saline
Assessment/Plan
-
Assessment:
Hyponatremia
Chronic cough
BPH
Plan:
Hyponatremia
- urine studies consistent with SIADH
- agree with 3% HTS at 40cc/hr. Na on presentation at 121 --> brought up to 124 this AM. Now 129 now 129
- patient does have chronic hyponatremia
- encouraged patient to FR and increase osmolar intake
-DC further hypertonic saline at this time
-Urine osmolality of 388 notes SIADH likely due to pulmonary source
-
-
Date of Service: May 31, 2023
CC / HPI / ROS
-
Chief Complaint:
Hyponatremia
History of Present Illness:
Serum sodium up to 129 from 124 following hypertonic saline administration
Hemodynamically stable
Review of Systems:
No chest pain or shortness of breath
Urine output not recorded but subjectively nonoliguric
Labs
-
Labs:
WBC 5.6 10^3/uL (4.8-10.8) 05/31/23 06:47
RBC 3.77 10^6/uL (4.70-6.10) L 05/31/23 06:47
Hgb 11.3 g/dL (13.0-18.0) L 05/31/23 06:47
Hct 31.6 % (39.0-52.0) L 05/31/23 06:47
Plt Count 279 10^3/uL (130-400) 05/31/23 06:47
Potassium 4.6 mmol/L (3.5-5.1) 05/31/23 06:47
Chloride 102 mmol/L (98-107) 05/31/23 06:47
Carbon Dioxide 24 mmol/L (22-30) 05/31/23 06:47
BUN 10 mg/dl (9-20) 05/31/23 06:47
Creatinine 0.6 mg/dL (0.7-1.3) L 05/31/23 06:47
eGFR > 60.00 05/31/23 06:47
Glucose 134 mg/dl (70-99) H 05/31/23 06:47
Calcium 9.1 mg/dl (8.4-10.2) 05/31/23 06:47
Ntj-Q-Yehagyoypak Pept 714 pg/ml 05/29/23 15:33
Albumin 3.8 g/dl (3.5-5.0) 05/29/23 15:33
Physical Exam
-
Vital Signs:
Vital Signs
Temp Pulse Resp BP Pulse Ox
97.7 F 81 18 107/67 97
05/31/23 07:30 05/31/23 07:56 05/31/23 07:56 05/31/23 07:30 05/31/23 07:56
Cardiovascular:: Regular rate and rhythm
Respiratory:: Bilateral: Coarse
Lung Excursion:: Normal
Abdomen:: Nontender
Bowel Sounds:: Normal
Extremity Edema:: None: Bilateral:
[2023-05-31 12:11] LABS: Sodium 130 mmol/L (135-145)
--- NOTE | 2023-05-31 12:19 | W.PN.HOSP.TC ---
Today's Communication/Plan
-
fluid restriction, repeat BMP tomorrow AM
decadron, doxy, nebs, inhalers
appreciate consultants
Assessment / Plan
Assessment / Plan
Mr. Gerardo Carlos is a 83 yo man with hx GERD, HTN with on-going outpatient work-up of cough sent to the ER by [facility] for neck CT.
CXR
IMPRESSION:
1. Mildly decreased bilateral lung volumes with mild subpleural scarring and subsegmental atelectasis in both lower lungs which appears unchanged.
2. Mild left to right mediastinal shift which appears unchanged.
NECK CT
IMPRESSION:
1. Mild enlargement of the right lingual tonsil partially effacing the right vallecula. Diagnostic possibilities are (1) tonsillar hypertrophy or (2) squamous cell carcinoma.
2. Moderate mucosal thickening in the maxillary sinuses and ethmoid air cells.
3. Severe multilevel discogenic degenerative disease in the cervical spine with multilevel disc-osteophyte complexes causing mild spinal cord compression, mild central canal stenosis, and severe neural foraminal narrowing.
Hyponatremia
-etiology of hyponatremia likely 'tea and toast' diet as patient has not been eating well 2/2 resp sx versus SIADH from lung pathology
-s/p 3% with appropriate rise; Na 129 this AM; 3% stopped and repeat 130
-continue fluid restriction
-repeat BMP tomorrow AM
-appreciate renal
Chronic Cough
Asthmatic Bronchitis
post covid syndrome
-on-going since covid with progressive symptoms. He had a recent chest CT without acute disease of the chest
-Neck CT abnormal showing mild enlargement right lingual tonsil -patient has follow up scheduled with ENT
-continue new inhalers ordered by Dr. Jordan at clinic. He was also prescribed a prednisone taper; IV Decadron ordered here
-continue albuterol PRN
-Mucinex daily (patient doesn't like taking at night), acapella
-Tessalon pearles PRN
-sputum culture
-start robitussin with codeine qhs - helped patient sleep last night
-stop Dextromorphan as can cause excessive drowsiness
BPH
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
DVT PPx lovenox subQ
FULL CODE
Anticipated Discharge: 24 - 48 hours
Subjective/Interval History
-
Date of Service: May 31, 2023
patient states he finally slept well overnight
cough remains persistent
Objective Data
-
Labs:
Laboratory Results
05/31/23 05/31/23 05/31/23
02:04 06:47 11:46
WBC 5.6
Hgb 11.3 L
Hct 31.6 L
Plt Count 279
Sodium 127 L 129 L 130 L
Potassium 4.6 4.6
Chloride 99 102
Carbon Dioxide
BUN 10 10
Creatinine 0.6 L 0.6 L
Glucose 144 H 134 H
Calcium 9.2 9.1
Vital Signs:
Vital Signs
Temp Pulse Resp BP Pulse Ox
97.7 F 78 16 107/67 96
05/31/23 07:30 05/31/23 11:31 05/31/23 11:31 05/31/23 07:30 05/31/23 11:31
I&O
05/30/23 05/31/23 06/01/23
06:59 06:59 06:59
Intake Total 840 / 840 460 / 460
Balance 840 / 840 460 / 460
Review of Systems
-
History Source: Patient
All other systems: Reviewed and negative
Physical Exam
-
General: No Apparent Distress and Conversant
HEENT: PERRLA
Respiratory: Other (coughing with expiration)
Cardiac: Regular Rhythm and S1/S2
GI: Soft and Nontender
Musculoskeletal: No Edema
Skin: Warm and Dry; Negative Rash
Neuro: AO x 3
Psych: Calm
Data Reviewed
-
Diagnostic Radiology: Report Reviewed by me
Labs: Labs Reviewed by me
--- NOTE | 2023-05-31 14:45 | CM ---
family requested additional contacts- admission updated.
Angelique King granddaughter [phone]
Oksana Carlos granddaughter [phone]
[2023-05-31] MEDS: TESSALON PERLES 100 MG PO (14:51)
--- NOTE | 2023-05-31 15:06 | W.PN.UPDATE ---
Update Note
Progress Note Update
sputum culture with h. Influenzae. will start IV Ceftriaxone. Patient and updated.
[2023-05-31] MEDS: LOVENOX 40 MG SC (17:40)
[2023-05-31] MEDS: STERILE WATER FOR INJECTION 10 ML IV (17:40)
[2023-05-31] MEDS: ROCEPHIN 1000 MG IV (17:40)
[2023-05-31] MEDS: DUONEB INH ×2 (20:43→20:48)
[2023-05-31] MEDS: FLUSH (NSS) 1 FLUSH IV (21:29)
[2023-05-31] MEDS: ROBITUSSIN AC 5 ML PO (21:32)
[2023-05-31 23:38] VITALS: BP 131/76
[2023-06-01 07:42] LABS: Blood Urea Nitrogen 19 mg/dl (9-20); Calcium 9.6 mg/dl (8.4-10.2); Carbon Dioxide 25 mmol/L (22-30); Chloride 98 mmol/L (98-107); Estimated Creatinine Clearance 80 ml/min; Glucose 117 mg/dl (70-99); Potassium 4.6 mmol/L (3.5-5.1); Sodium 128 mmol/L (135-145); eGFR > 60.00
[2023-06-01] MEDS: SYMBICORT 160/4.5 MCG INHALER 2 PUFF INH (07:45)
[2023-06-01] MEDS: DUONEB 3 ML INH ×2 (07:45→11:31)
[2023-06-01 08:00] VITALS: BP 131/71
[2023-06-01] MEDS: ZYRTEC 10 MG PO (08:06)
[2023-06-01] MEDS: PROTONIX 40 MG PO (08:06)
[2023-06-01] MEDS: MUCINEX 600 MG PO (08:06)
[2023-06-01] MEDS: DECADRON 4 MG IV (08:06)
[2023-06-01] MEDS: FLOMAX 0.400000000000000022 MG PO (08:06)
--- NOTE | 2023-06-01 11:18 | PTCARENOTE ---
Notified provider of patient's Na level as well as auscultated expiratory wheeze.
--- NOTE | 2023-06-01 11:28 | W.PN.HOSP.TC ---
Today's Communication/Plan
-
DC today after IV Ceftriaxone and Samsca given
Assessment / Plan
Assessment / Plan
Mr. Gerardo Carlos is a 83 yo man with hx GERD, HTN with on-going outpatient work-up of cough sent to the ER by [facility] for neck CT.
CXR
IMPRESSION:
1. Mildly decreased bilateral lung volumes with mild subpleural scarring and subsegmental atelectasis in both lower lungs which appears unchanged.
2. Mild left to right mediastinal shift which appears unchanged.
NECK CT
IMPRESSION:
1. Mild enlargement of the right lingual tonsil partially effacing the right vallecula. Diagnostic possibilities are (1) tonsillar hypertrophy or (2) squamous cell carcinoma.
2. Moderate mucosal thickening in the maxillary sinuses and ethmoid air cells.
3. Severe multilevel discogenic degenerative disease in the cervical spine with multilevel disc-osteophyte complexes causing mild spinal cord compression, mild central canal stenosis, and severe neural foraminal narrowing.
Hyponatremia
-etiology of hyponatremia likely 'tea and toast' diet as patient has not been eating well 2/2 resp sx versus SIADH from lung pathology
-s/p 3% with appropriate rise; Na relatively stable 128 this AM. Discussed with renal who will order one dose Samsca prior to DC
-repeat labs in 3-5 days
-continue fluid restriction
Chronic Cough
Asthmatic Bronchitis with sputum culture growing H. Influenzae
post covid syndrome
-CXR and recent chest CT without acute disease of the chest
-sputum culture resulted H. Influenzae - stopped doxy; now on ceftriaxone and improving
-DC on 5 more days Cefdinir and prednisone taper; new inhalers
-appreciate pulm consult
Neck CT abnormal showing mild enlargement right lingual tonsil -patient has follow up scheduled with ENT
BPH
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
DVT PPx lovenox subQ
FULL CODE
Anticipated Discharge: Today
Subjective/Interval History
-
Date of Service: June 01, 2023
feeling better
less cough this morning
feels ready to leave and go home
Objective Data
-
Labs:
Laboratory Results
06/01/23
06:57
Sodium 128 L
Potassium 4.6
Chloride 98
Carbon Dioxide 25
BUN 19
Creatinine 0.7
Glucose 117 H
Calcium 9.6
Vital Signs:
Vital Signs
Temp Pulse Resp BP Pulse Ox
97.9 F 68 16 131/71 96
06/01/23 08:00 06/01/23 08:00 06/01/23 08:00 06/01/23 08:00 06/01/23 08:00
I&O
05/31/23 06/01/23 06/02/23
06:59 06:59 06:59
Intake Total 840 / 840 1300 / 1300 480 / 480
Balance 840 / 840 1300 / 1300 480 / 480
Review of Systems
-
History Source: Patient
All other systems: Reviewed and negative
Physical Exam
-
General: No Apparent Distress and Conversant
HEENT: PERRLA
Respiratory: Wheezes (end exp improving )
Cardiac: Regular Rhythm and S1/S2
GI: Soft and Nontender
Musculoskeletal: No Edema
Skin: Warm and Dry; Negative Rash
Neuro: AO x 3
Psych: Calm
Data Reviewed
-
Diagnostic Radiology: Report Reviewed by me
Labs: Labs Reviewed by me
--- NOTE | 2023-06-01 11:32 | W.PN.NEPH.PH ---
Today's Communication / Plan
-
Samsca 7.5 mg x 1
Discharge on fluid restriction with follow-up BMP to primary care doctor next
Stable for discharge
Assessment/Plan
-
Assessment:
Hyponatremia
Chronic cough
BPH
Plan:
Hyponatremia
- urine studies consistent with SIADH
- agree with 3% HTS at 40cc/hr. Na on presentation at 121 --> brought up to 124 this AM. Now 129 now 128
- patient does have chronic hyponatremia
- encouraged patient to FR and increase osmolar intake
-Will provide Samsca 7.5 mg today and then discharge patient
-Patient should have follow-up BMP at the end of next week forwarded to primary care physician
-Urine osmolality of 388 notes SIADH likely due to pulmonary source
-
-
Date of Service: June 01, 2023
CC / HPI / ROS
-
Chief Complaint:
Hyponatremia
History of Present Illness:
Serum sodium down to 128
Hemodynamically stable
Review of Systems:
No chest pain or shortness of breath
Urine output not recorded but subjectively nonoliguric
Labs
-
Labs:
WBC 5.6 10^3/uL (4.8-10.8) 05/31/23 06:47
RBC 3.77 10^6/uL (4.70-6.10) L 05/31/23 06:47
Hgb 11.3 g/dL (13.0-18.0) L 05/31/23 06:47
Hct 31.6 % (39.0-52.0) L 05/31/23 06:47
Plt Count 279 10^3/uL (130-400) 05/31/23 06:47
Sodium 128 mmol/L (135-145) L 06/01/23 06:57
Potassium 4.6 mmol/L (3.5-5.1) 06/01/23 06:57
Chloride 98 mmol/L (98-107) 06/01/23 06:57
Carbon Dioxide 25 mmol/L (22-30) 06/01/23 06:57
BUN 19 mg/dl (9-20) 06/01/23 06:57
Creatinine 0.7 mg/dL (0.7-1.3) 06/01/23 06:57
eGFR > 60.00 06/01/23 06:57
Glucose 117 mg/dl (70-99) H 06/01/23 06:57
Calcium 9.6 mg/dl (8.4-10.2) 06/01/23 06:57
Wee-A-Xaoltnqjjhc Pept 714 pg/ml 05/29/23 15:33
Albumin 3.8 g/dl (3.5-5.0) 05/29/23 15:33
Physical Exam
-
Vital Signs:
Vital Signs
Temp Pulse Resp BP Pulse Ox
97.9 F 68 16 131/71 96
06/01/23 08:00 06/01/23 08:00 06/01/23 08:00 06/01/23 08:00 06/01/23 08:00
Cardiovascular:: Regular rate and rhythm
Respiratory:: Bilateral: Coarse
Lung Excursion:: Normal
Abdomen:: Nontender
Bowel Sounds:: Normal
Extremity Edema:: None: Bilateral:
Dial Catheter: No
--- NOTE | 2023-06-01 11:48 | W.DS.TRANS ---
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
-
Discharge Instructions:
Discharge Diagnosis/Procedures Haemophilus Influenzae Bronchitis; Reactive
Airway Disease; Hyponatremia
Additional Diets restrict free water to 40 oz a day. This will
eventually be liberalized with recovery from
lung infection and after monitoring outpatient
labs, to be followed by your PCP.
Activity As tolerated
Driving Restrictions As prior to admission
Bathing Restrictions None
Blood Work BMP in 3-5 days
Instructions: Hyponatremia (DC)
Stand-Alone Forms:
Changes to Home Medications: Yes
Discharge Medications:
DC Medications w/original date entered in [facility]
albuterol sulfate 90 mcg/actuation aerosol inhaler 2 puff inhalation R Q6 PRN shortness of breath or wheezing 05/29/23
budesonide-formoterol HFA 160 mcg-4.5 mcg/actuation aerosol inhaler 2 puff inhalation R BID 05/29/23
fluticasone propionate 50 mcg/actuation nasal spray,suspension 1 spray intranasal BID 05/29/23
omeprazole magnesium 20 mg tablet,delayed release (Prilosec OTC) 20 mg PO DAILY 05/29/23
tamsulosin 0.4 mg capsule 0.4 mg PO DAILY 05/29/23
cefdinir 300 mg capsule 300 mg PO Q12 #10 caps 06/01/23
cetirizine 10 mg tablet (Zyrtec) 10 mg PO HS #0 tabs 06/01/23
codeine 10 mg-guaifenesin 100 mg/5 mL oral liquid 5 ml PO HS PRN Cough #118 mL 06/01/23
guaifenesin 600 mg tablet, extended release 12 hr 600 mg PO DAILY #30 tabs 06/01/23
prednisone 10 mg tablets in a dose pack 10 mg PO DIRECTED 06/01/23
Home Medication Changes
Do not start Doxycycline (the antibiotic initially prescribed). This is replaced with Cefdinir. You have 5 more days of Cefdinir (first dose tomorrow morning).
Start prednisone taper prescribed by Dr. Jordan. Also continue new inhalers.
If necessary for evening cough, Ok to take 5ml of codeine-guaifenesin in evenings. This can make you drowsy, do not take during the day.
Stop cough medications that contain dextromorphan (DM) - this can make you drowsy
Pending Results: No
--- NOTE | 2023-06-01 12:44 | CM ---
CM following re: discharge planning.
Reviewed pt's chart, met with pt.
Pt is an 83 year old male, admitted with primary d of Hyponatremia.
Pt reports he lives with spouse in a condo, 2 steps to enter, has 3 supportive children. 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 No DME, VN or SNF history.
PCP: Monet Hooker
Pharmacy: [facility]
Discharge order noted. Pt is aware, expressed his agreement with discharge. IMM reviewed, placed in chart, pt has a copy. Pt stated he does not need any after care VN services and his spouse will transport home.
D/C plan: home no needs. Spouse to transport.
[2023-06-01] MEDS: SAMSCA 7.5 MG PO (13:57)
[2023-06-01] MEDS: ROCEPHIN 1000 MG IV (13:57)
[2023-06-01] MEDS: STERILE WATER FOR INJECTION 10 ML IV (13:57)
[2023-06-01] MEDS: TESSALON PERLES 100 MG PO (13:59)
--- NOTE | 2023-06-01 14:40 | W.DCSUMMARY ---
Discharge Summary
Discharge Data
Date of Admission: 05/29/23
Date of Discharge: 06/01/23
-
Pending Results: No
Hospital Course
Discharging Physician : Dr. Kim Lake
Disposition : Home
Primary care physician : Dr. Monet Hooker
Principal Discharge diagnosis : Haemophilus Influenzae Bronchitis; Reactive Airway Disease; Hyponatremia
Hospital Course :
Mr. Gerardo Carlos is a 83 yo man with hx GERD, HTN with on-going outpatient work-up of cough sent to the ER by [employer] for neck CT given report of wheezing/stridor. Patient was given nebulizers in clinic followed by excessive coughing
attack. Given this, Dr. Jordan sent patient to the ER for expedited work-up. Triage vitals stable with SpO2 98%. Labs with WBC 9.4, Na 121. CXR without acute disease. Patient had a recent chest CT as outpatient without acute disease.
Patient was admitted to medicine with Nephrology consulting for hyponatremia. Pulmonary was consulted for persistent cough and asthma exacerbation.
Regarding hyponatremia, he received 3% saline with appropriate rise. Na augustin to 130. Off of 3% it decreased to 128 following day. Per renal, he is given one dose of Samsca. Ok for discharge on continued fluid restriction. He will get repeat
labs in 3-5 days.
Patient had copious sputum production. Sputum culture collected and grew Haemophilus Influenzae . He is started on IV Ceftriaxone and noticed improvement. He completed 2 days in-house and is discharged on 5 more days Cefdinir twice a day. He
received Decadron in the hospital and will start prednisone taper prescribed by Dr. Jordan at clinic (diana still needs to product picker from pharmacy). He is also told to continue his new script for Symbicort. While in-house he was given robitussin
with codeine at night which helped him sleep and he is prescribed this at discharge. He is told to stop taking cough medication with dextromethorphan given drowsiness risk.
Regarding Neck CT findings, briefly reviewed with ENT and this is to be followed up as outpatient. Patient already has an upcoming appointment.
Patient felt ready for discharge. Family was updated.
Time spent on discharge was 35 minutes.
From [facility]:
Do not start Doxycycline (the antibiotic initially prescribed). This is replaced with Cefdinir. You have 5 more days of Cefdinir (first dose tomorrow morning).
Start prednisone taper prescribed by Dr. Jordan. Also continue new inhalers.
If necessary for evening cough, Ok to take 5ml of codeine-guaifenesin in evenings. This can make you drowsy, do not take during the day.
Stop cough medications that contain dextromorphan (DM) - this can make you drowsy
Please follow up with ENT as planned for finding on neck CT showing mildly enlargement of right lingual tonsil
Important imaging findings :
CXR
IMPRESSION:
1. Mildly decreased bilateral lung volumes with mild subpleural scarring and subsegmental atelectasis in both lower lungs which appears unchanged.
2. Mild left to right mediastinal shift which appears unchanged.
NECK CT
IMPRESSION:
1. Mild enlargement of the right lingual tonsil partially effacing the right vallecula. Diagnostic possibilities are (1) tonsillar hypertrophy or (2) squamous cell carcinoma.
2. Moderate mucosal thickening in the maxillary sinuses and ethmoid air cells.
3. Severe multilevel discogenic degenerative disease in the cervical spine with multilevel disc-osteophyte complexes causing mild spinal cord compression, mild central canal stenosis, and severe neural foraminal narrowing.
Procedure findings :
Discharge Plan
-
Patient Disposition: Home (Routine Discharge)
Discharge Diagnosis/Procedures: Haemophilus Influenzae Bronchitis; Reactive Airway Disease; Hyponatremia
Additional Diets: restrict free water to 40 oz a day. This will eventually be liberalized with recovery from lung infection and after monitoring outpatient labs, to be followed by your PCP.
Activity: As tolerated
Driving Restrictions: As prior to admission
Bathing Restrictions: None
Blood Work: BMP in 3-5 days
Instructions: Pneumonia, Adult (DC), Hyponatremia (DC)
Referrals:
Ollie Jordan MD [Active] - in two to three weeks (Patient has appointment on 07/03/2023 at 1 PM, however please move up appointment)
Monet Hooker, [Family Provider] - in less than 1 week
Additional Discharge Medication Instructions: Do not start Doxycycline (the antibiotic initially prescribed). This is replaced with Cefdinir. You have 5 more days of Cefdinir (first dose tomorrow morning).
Start prednisone taper prescribed by Dr. Jordan. Also continue new inhalers.
If necessary for evening cough, Ok to take 5ml of codeine-guaifenesin in evenings. This can make you drowsy, do not take during the day.
Stop cough medications that contain dextromorphan (DM) - this can make you drowsy
Please follow up with ENT as planned for finding on neck CT showing mildly enlargement of right lingual tonsil
Prescriptions:
New
guaifenesin 600 mg Tablet Extended Release 12hr
600 mg PO DAILY Qty: 30 0RF
codeine-guaifenesin 10-100 mg/5 mL Liquid
5 ml PO HS PRN (Reason: Cough) Qty: 118 0RF
cefdinir 300 mg Capsule
300 mg PO Q12 Qty: 10 0RF
Rx Instructions:
first dose morning of 06/02/23
Continued
tamsulosin 0.4 mg capsule
0.4 mg PO DAILY
budesonide-formoterol 160-4.5 mcg/actuation HFA aerosol inhaler
2 puff INHALATION R BID
albuterol sulfate 90 mcg/actuation HFA aerosol inhaler
2 puff inhalation R Q6 PRN (Reason: shortness of breath or wheezing)
fluticasone propionate 50 mcg/actuation [place],Suspension
1 spray INTRANASAL BID
omeprazole magnesium [Prilosec OTC] 20 mg Tablet,Delayed Release (Dr/Ec)
20 mg PO DAILY
prednisone 10 mg Tablets,Dose Pack
10 mg PO DIRECTED
Changed
cetirizine [Zyrtec] 10 mg Tablet
10 mg PO HS Qty: 0 0RF
Discontinued
promethazine-DM 6.25-15 mg/5 mL syrup
10 ml PO Q4H PRN (Reason: cough)
dextromethorphan HBr [Robitussin Coughgel] 15 mg Capsule
15 mg PO DAILY PRN (Reason: cough)
Robitussin Sevr Sfpun-Wtug-Eaw 10-20-650 mg/20 mL Liquid
20 ml PO DAILY PRN (Reason: cold symptoms/cough)
doxycycline hyclate 100 mg Capsule
100 mg PO BID
Discharge Orders:
Discharge Patient (As Directed); Ordered 06/01/23
Ordered By: Kim Lake
Discharge Date and Time
Print Language: DJIBOUTIAN
[2023-06-04 16:08] LABS: Bordetella Pertussis Ab, IgA 2.6 IV (<=1.1); Bordetella Pertussis Ab, IgG 3.12 IV (<=1.04); Bordetella Pertussis Ab, IgM 1.8 IV (<=1.1)
[2023-06-05 07:17] LABS: B. Pertussis, IgA IB FHA Positive; B. Pertussis, IgA IB PT Equivocal; B. Pertussis, IgG IB FHA Positive; B. Pertussis, IgG IB PT Positive; B. Pertussis, IgG IB PT100 Equivocal; B. Pertussis, IgM IB FHA Negative; B. Pertussis, IgM IB PT Equivocal
--- NOTE | 2023-06-05 20:29 | W.PN.UPDATE ---
Update Note
Progress Note Update
Pertussis positive per labs
-Patient pertussis IgG 3.12 positive, IgM 1.8 positive, IgA 2.6 positive
-Patient last DTaP was 3.5 years ago when his grandson was born
-Will place patient on Zithromax 5-day course he is to finish his cefdinir tomorrow for his current haemophilus influenza(this was called into [facility] [phone]
-Advised patient to cancel his appointment tomorrow with ENT but make ENT aware
-Advised patient I will fax to Dr. Sapp's office and his primary care provider Dr. Monet Hooker, they were unable to get a sooner appointment than July 02 with pulmonary
== END 2023-06-01 15:03 | disposition home or self-care (01) | DRG 202 ==
LOC: 4 WEST ACU 19:00
PROVIDERS: Emergency Medicine; Specialist; ADMITTING PHYSICIAN Student in an Organized Health Care Education/Training Program; CONSULT PHYSICIAN Internal Medicine Critical Care Medicine; CONSULT PHYSICIAN Student in an Organized Health Care Education/Training Program; EMERGENCY PHYSICIAN Emergency Medicine; FAMILY PHYSICIAN Family Medicine
DX: J45.909 Unspecified asthma, uncomplicated (principal); E22.2 Syndrome of inappropriate secretion of antidiuretic hormone; G95.20 Unspecified cord compression; J98.11 Atelectasis; U09.9 Post COVID-19 condition, unspecified; M25.78 Osteophyte, vertebrae
CPT/HCPCS: 70490; 71046; 80048; 80053; 83735; 83880; 83935; 84295; 84300; 84443; 84484; 85025; 85027; 85610; 86615; 87070; 87077; 87185; 87205; 93005; 94640; 96360; 96361; 99285

== ENCOUNTER → 2023-06-07 13:25 | Outpatient (REF) | payer OTHER, SELFPAY ==
[2023-06-07 15:19] LABS: Blood Urea Nitrogen 20 mg/dl (9-20); Calcium 9.7 mg/dl (8.4-10.2); Carbon Dioxide 28 mmol/L (22-30); Chloride 96 mmol/L (98-107); Glucose 128 mg/dl (70-99); Potassium 4.5 mmol/L (3.5-5.1); Sodium 130 mmol/L (135-145); eGFR > 60.00
== END ==
LOC: REG 13:25
PROVIDERS: ATTENDING PHYSICIAN Student in an Organized Health Care Education/Training Program; FAMILY PHYSICIAN Family Medicine; REFERRING PHYSICIAN Internal Medicine Cardiovascular Disease
DX: E87.1 Hypo-osmolality and hyponatremia (principal)
CPT/HCPCS: 36415; 80048

== ENCOUNTER → 2023-06-18 10:57 | Outpatient (REF) | payer OTHER, SELFPAY ==
[2023-06-18 13:31] LABS: Blood Urea Nitrogen 19 mg/dl (9-20); Calcium 9.5 mg/dl (8.4-10.2); Carbon Dioxide 25 mmol/L (22-30); Chloride 101 mmol/L (98-107); Glucose 118 mg/dl (70-99); Potassium 4.2 mmol/L (3.5-5.1); Sodium 133 mmol/L (135-145); eGFR > 60.00
== END ==
LOC: REG 10:57
PROVIDERS: ATTENDING PHYSICIAN Family Medicine
DX: E87.1 Hypo-osmolality and hyponatremia (principal)
CPT/HCPCS: 36415; 80048

== ENCOUNTER → 2023-08-20 10:45 | Outpatient (REF) | payer OTHER, SELFPAY ==
[2023-08-20 12:10] LABS: % Basophils 0.8 % (0-2); % Eosinophils 4.5 % (0-6); % Immature Granulocytes 0.5 % (0-0.5); % Lymphocytes 23.2 % (20.5-51.1); % Monocytes 8.2 % (1.7-9.3); % Neutrophils 62.8 % (42.2-75.2); Absolute Basophils 0.1 10^3/uL (0-0.2); Absolute Eosinophils 0.3 10^3/uL (0-0.7); Absolute Lymphocytes 1.4 10^3/uL (1.2-3.4); Absolute Monocytes 0.5 10^3/uL (0.1-0.6); Absolute Neutrophils 3.9 10^3/uL (1.4-6.5); Hematocrit 38.1 % (39.0-52.0); Hemoglobin 13.2 g/dL (13.0-18.0); Mean Corp Hgb Conc. 34.6 g/dL (33.0-37.0); Mean Corpuscular Hgb 30.1 pg (27.0-31.0); Mean Platelet Volume 9.7 fL (7.4-10.4); Nucleated Red Blood Cells % 0 % (-); Platelet Count 246 10^3/uL (130-400); Red Blood Cell Count 4.38 10^6/uL (4.70-6.10); Red Cell Dist. Width 13.3 % (11.5-14.5); White Blood Cell Count 6.2 10^3/uL (4.8-10.8)
[2023-08-20 12:16] LABS: Urine Albumin Negative (Neg - Trace); Urine Bilirubin Negative (Negative); Urine Character Clear (Clear); Urine Color Yellow; Urine Glucose Negative (Negative); Urine Ketone Negative (Negative); Urine Leukocyte Trace (Negative); Urine Nitrite Negative (Negative); Urine Occult Blood Negative (Negative); Urine Urobilinogen Negative (Neg - 1+)
[2023-08-20 12:32] LABS: ALT (SGPT) 28 U/L (0-50); AST (SGOT) 28 U/L (17-59); Alkaline Phosphatase 98 U/L (38-126); Blood Urea Nitrogen 17 mg/dl (9-20); Calcium 9.6 mg/dl (8.4-10.2); Carbon Dioxide 27 mmol/L (22-30); Chloride 99 mmol/L (98-107); Glucose 93 mg/dl (70-99); HDL Cholesterol 64 mg/dl; LDL Cholesterol, Calculated 98 mg/dl; Potassium 4.7 mmol/L (3.5-5.1); Sodium 133 mmol/L (135-145); Total Bilirubin 0.6 mg/dl (0.2-1.3); Total Cholesterol 176 mg/dl (50-199); Total Protein 6.4 g/dl (6.3-8.2); Triglyceride 73 mg/dl (10-149); Very Low Density Lipoprotein 14 mg/dl (0-30); eGFR > 60.00
[2023-08-20 13:01] LABS: TSH 2.33 uIU/ml (0.47-4.68)
[2023-08-20 13:52] LABS: Urine Red Blood Cell None Seen /HPF (0-2); Urine White Cell 0-2 /HPF (0-5)
== END ==
LOC: REG 10:45
PROVIDERS: ATTENDING PHYSICIAN Family Medicine
DX: E78.5 Hyperlipidemia, unspecified (principal); G25.0 Essential tremor; Z86.79 Personal history of other diseases of the circulatory system; Z86.73 Personal history of transient ischemic attack (TIA), and cerebral infarction without residual deficits; R93.1 Abnormal findings on diagnostic imaging of heart and coronary circulation; I47.10 Supraventricular tachycardia, unspecified
CPT/HCPCS: 36415; 80053; 80061; 81003; 81015; 84443; 85025

== ENCOUNTER → 2024-02-11 16:34 | Outpatient (REF) | payer OTHER, SELFPAY | LOC: RAD 16:34 | PROVIDERS: ATTENDING PHYSICIAN Nurse Practitioner Family; FAMILY PHYSICIAN Family Medicine | DX: R68.89 Other general symptoms and signs (principal) | CPT/HCPCS: 71046 ==